=== PATIENT | male | born 1940 | race Caucasian/White ===

== ENCOUNTER 2017-03-03 15:34 | Emergency (ER) | payer OTHER ==
[~2017-03-03] VITALS: Ht 188 cm; Wt 95.0 kg
[2017-03-03 15:43] VITALS: BP 175/86; PULSE 112; RESP 18; TEMP 98.5; O2SAT 97
[2017-03-03 18:18] VITALS: BP 120/90; PULSE 102; RESP 18; O2SAT 98
[2017-03-03] MEDS ORDERED: SILVER SULFADIAZINE 1% CR 50 GM JAR TOPICAL ONE (18:30)
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
[2017-03-03] MEDS ORDERED: CIPR-9 PO (18:38)
[2017-03-03] MEDS ORDERED: SILV1CRE20 TOPICAL (18:38)
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
== END 2017-03-03 19:09 | disposition home or self-care (01) ==
LOC: NEPE 15:34
DX: T25.222A Burn of second degree of left foot, initial encounter (principal); T25.221A Burn of second degree of right foot, initial encounter; X19.XXXA Contact with other heat and hot substances, initial encounter; I10 Essential (primary) hypertension; E11.9 Type 2 diabetes mellitus without complications
CPT/HCPCS: 16020